=== PATIENT | male | born 1990 | race Caucasian/White ===

== ENCOUNTER 2018-10-04 07:39 | Emergency (ER) | payer MEDICAID, OTHER ==
[2018-10-04 08:26] LABS: ABS Basophils 0 10^3/ul (0-0.2); ABS Eosinophils 0 10^3/ul (0-0.6); ABS Lymphocytes 0.4 10^3/ul (1.0-4.8); ABS Monocytes 0.5 10^3/ul (0-0.8); ABS Neutrophils 2.7 10^3/ul (1.5-7.7); ABS Nucleated RBC 0 10^3/ul; Eosinophil % 0.8 %; Hematocrit 45 % (42-52); Hemoglobin 15.4 g/dl (14.0-18.0); Lymphocyte % 11.8 %; Mean Corpuscular HGB Conc 34 g/dl (31-36); Mean Corpuscular Hemoglobin 31 pg (27-31); Mean Corpuscular Volume 90 fL (80-94); Mean Platelet Volume 7.7 fL (7.4-10.4); Nucleated Red Blood Cells % 0.1; Platelet Count 220 10^3/ul (150-450); Red Blood Count 5.02 10^6/ul (4.00-5.40); Red Cell Distribution Width 13 % (10.5-15); White Blood Count 3.7 10^3/ul (3.5-10.8)
[2018-10-04 08:32] LABS: INR 1.15 (0.77-1.02)
--- NOTE | 2018-10-04 08:37 | ED ---
HPI Chest Pain - HPI Summary HPI Summary: Patient is a 27-year-old male presenting to the ED with a three-day worsening history of sweats, chills and diffuse chest pain. He notes the chest pain has been present consistently 2 years. Chest pain is not worse or better with positioning and not a better with medications. Nothing makes symptoms better or worse. 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 Today's chief complaint is patient states he has been unable to "get warm." He denies any body aches. Denies any subjective fevers. He states symptoms worsened yesterday after going out into the cold and having worsening chest pain with an episode of SOB. Currently asymptomatic on arrival. Patient denies smoking history, however smokes marijuana. Family history includes father PA at 21 and mother with triple bypass. Patient takes NyQuil at bed time to sleep but denies other medications. - History of Current Complaint Chief Complaint: EDGeneral Time Seen by Provider: 10/04/18 07:47 Hx Obtained From: Patient Onset/Duration: Started Hours Ago Timing: Constant Initial Severity: Moderate Current Severity: Mild Pain Intensity: 8 Pain Scale Used: 0-10 Numeric Chest Pain Location: Diffuse Chest Pain Radiates: No Character: Dull/Aching Aggravating Factor(s): Nothing Alleviating Factor(s): Nothing Associated Signs and Symptoms: Positive: Chest Pain, Anxiety, Recent Stress, Nonproductive Cough - Allergy/Home Medications Allergies/Adverse Reactions: Allergies Allergy/AdvReac Type Severity Reaction Status Date / Time Penicillins Allergy Anaphylatic Verified 10/04/18 07:45 Shock PMH/Surg Hx/FS Hx/Imm Hx Previously Healthy: Yes - Immunization History Hx Pertussis Vaccination: No Immunizations Up to Date: Yes Infectious Disease History: No Infectious Disease History: Denies: Traveled Outside the [place] in Last 30 Days - Social History Occupation: Employed Full-time Lives: With Family Alcohol Use: Rare Hx Substance Use: Yes Substance Use Type: Reports: Marijuana Hx Tobacco Use: Yes Smoking Status (MU): Former Smoker Review of Systems Positive: Chills, Fatigue, Skin Diaphoresis Negative: Photophobia, Blurred Vision Negative: Sore Throat, Ear Ache, Nasal Discharge Positive: Chest Pain. Negative: Palpitations Negative: Shortness Of Breath, Cough Genitourinary: Negative Positive: no symptoms reported, see HPI Negative: Arthralgia, Myalgia Neurological: Negative All Other Systems Reviewed And Are Negative: Yes Physical Exam Triage Information Reviewed: Yes Vital Signs On Initial Exam: Initial Vitals Temp Pulse Resp BP Pulse Ox 99.1 F 96 16 131/78 98 10/04/18 07:41 10/04/18 07:41 10/04/18 07:41 10/04/18 07:41 10/04/18 07:41 Vital Signs Reviewed: Yes Appearance: Positive: Well-Appearing, Well-Nourished Skin: Positive: Warm, Skin Color Reflects Adequate Perfusion Head/Face: Positive: Normal Head/Face Inspection Eyes: Positive: EOMI, MARIA M, Conjunctiva Clear Neck: Positive: Supple, No Lymphadenopathy Respiratory/Lung Sounds: Positive: Clear to Auscultation, Breath Sounds Present Cardiovascular: Positive: RRR, Pulses are Symmetrical in both Upper and Lower Extremities. Negative: Leg Edema Left, Leg Edema Right Musculoskeletal: Positive: Normal, Strength/ROM Intact Neurological: Positive: Sensory/Motor Intact, Alert, Oriented to Person Place, Time Psychiatric: Positive: Normal, Affect/Mood Appropriate AVPU Assessment: Alert Diagnostics - Vital Signs Vital Signs Temp Pulse Resp BP Pulse Ox 10/04/18 08:00 107 16 97 10/04/18 07:57 93 13 143/81 93 10/04/18 07:56 99 24 96 10/04/18 07:41 99.1 F 96 16 131/78 98 - Laboratory Lab Results: Lab Results 10/04/18 Range/Units 07:25 WBC 3.7 (3.5-10.8) 10^3/ul RBC 5.02 (4.00-5.40) 10^6/ul Hgb 15.4 (14.0-18.0) g/dl Hct 45 (42-52) % MCV 90 (80-94) fL MCH 31 (27-31) pg MCHC 34 (31-36) g/dl RDW 13 (10.5-15) % Plt Count 220 (150-450) 10^3/ul MPV 7.7 (7.4-10.4) fL Neut % (Auto) 72.2 % Lymph % (Auto) 11.8 % [place] % (Auto) 14.6 % Eos % (Auto) 0.8 % Baso % (Auto) 0.6 % Absolute Neuts (auto) 2.7 (1.5-7.7) 10^3/ul Absolute Lymphs (auto) 0.4 L (1.0-4.8) 10^3/ul Absolute Monos (auto) 0.5 (0-0.8) 10^3/ul Absolute Eos (auto) 0 (0-0.6) 10^3/ul Absolute Basos (auto) 0 (0-0.2) 10^3/ul Absolute Nucleated RBC 0 10^3/ul Nucleated RBC % 0.1 Result Diagrams: 10/04/18 07:25 10/04/18 07:25 Lab Statement: Any lab studies that have been ordered have been reviewed, and results considered in the medical decision making process. Chest Pain Course/Dx - Course Course Of Treatment: During the course of treatment, the patient is evaluated for diffuse chest pain 2 years and a chief complaint today of not being able to "get warm." He has never seen a clay worker and does not have a PCP. He is asymptomatic currently. Denies any SOB at this time. Symptoms are not worse or better with positioning or medications. Vital signs are stable and patient appears well. Lungs CTA, RRR. There is no weakness in the upper or lower extremities bilaterally. There is no chest pain on palpation. No pain to palpation of the abdomen. Patient is A and O 3, and nontoxic in appearing. Labs obtained which are unremarkable. Chest x-ray shows no acute cardiopulmonary disease. EKG shows normal sinus rhythm. Patient will be discharged home with a cardiac follow-up as well as information given for care connections to establish a PCP. - Chest Pain Differential Diagnosis/HQI/PQRI: Acute PA, Angina, Chest Wall, Other: - atypical chest pain - Diagnoses Provider Diagnoses: Atypical chest pain Discharge - Sign-Out/Discharge Documenting (check all that apply): Patient Departure - Discharge Plan Condition: Stable Disposition: HOME Referrals: [facility] [Outside] Pritesh Paiz MD [Medical Doctor] - No Primary Care Phys,NOPCP [Primary Care Provider] - Additional Instructions: Please follow up with PCP (Call [facility] to make an appt and secure a PCP) Call [facility] and make an appt I have given you referrals for each Please rest drink plenty of fluids Tylenol and Ibuprofen as needed for pain or fevers Return to the ED if you develop any worsening/changing symptoms - Billing Disposition and Condition Condition: STABLE Disposition: Home
[2018-10-04 08:51] LABS: BUN/Creatinine Ratio 9.5 (8-20); Calcium 9.5 mg/dL (8.6-10.3); Globulin 3.9 g/dL (2-4); Magnesium 1.8 mg/dL (1.9-2.7); Potassium 4.3 mmol/L (3.5-5.0); Total Bilirubin 0.6 mg/dL (0.2-1.0); Total Protein 7.9 g/dL (6.4-8.9)
[2018-10-04 09:22] VITALS: BP 124/76
== END 2018-10-04 09:20 | disposition home or self-care (01) ==
LOC: ED 07:39
DX: R07.89 Other chest pain (principal); F41.9 Anxiety disorder, unspecified; R05 Cough; Z87.891 Personal history of nicotine dependence; Z88.0 Allergy status to penicillin
CPT/HCPCS: 36415; 71046; 80053; 82550; 82553; 83605; 83735; 83880; 84484; 85025; 85610; 93005; 99282

== ENCOUNTER → 2018-10-05 | Emergency (ER) | payer MEDICAID ==
[~2018-10-05] MED LIST: Acetaminophen TAB* 325 MG PO ONE; Benzonatate CAP* 100 MG PO ONE; Ibuprofen TAB* 800 MG PO ONE; Lidocaine 2% VISCOUS* 15 ML UDC PO ONE
[2018-10-05 16:12] LABS: Influenza A Molecular POSITIVE (Negative)
--- NOTE | 2018-10-05 16:32 | ED ---
Influenza-Like Illness - HPI Summary HPI Summary: 27 year male presents with cough for the past couple days. He states he has no chest pain at this time. He did receive a full workup yesterday and had a negative chest x-ray and normal labs. He states that since then his cough has been worsening and he developed a fever. He states he admits to all over muscle aches. He admits to some sinus congestion. He has a sore throat from coughing. No bowel pain. No nausea vomiting or diarrhea. No one else is sick. Has no medical conditions. - History of Current Complaint Chief Complaint: EDUpperRespComplaint Time Seen by Provider: 10/05/18 15:29 - Allergy/Home Medications Allergies/Adverse Reactions: Allergies Allergy/AdvReac Type Severity Reaction Status Date / Time Penicillins Allergy Anaphylatic Verified 10/05/18 15:01 Shock PMH/Surg Hx/FS Hx/Imm Hx Endocrine/Hematology History: Denies: Hx Anticoagulant Therapy Respiratory History: Denies: Hx Asthma Infectious Disease History: No Infectious Disease History: Denies: Traveled Outside the [place] in Last 30 Days - Family History Known Family History: Negative: Respiratory Disease - Social History Alcohol Use: Rare Hx Substance Use: Yes Substance Use Type: Reports: Marijuana Hx Tobacco Use: Yes Smoking Status (MU): Former Smoker Review of Systems Positive: Fever Negative: Chest Pain Positive: Shortness Of Breath, Cough Negative: Abdominal Pain All Other Systems Reviewed And Are Negative: Yes Physical Exam Triage Information Reviewed: Yes Vital Signs On Initial Exam: Initial Vitals Temp Pulse Resp BP Pulse Ox 98.0 F 94 19 168/89 97 10/05/18 14:59 10/05/18 14:59 10/05/18 14:59 10/05/18 14:59 10/05/18 14:59 Vital Signs Reviewed: Yes Appearance: Positive: Ill-Appearing Skin: Positive: Warm, Dry Head/Face: Positive: Normal Head/Face Inspection Eyes: Positive: Normal, EOMI, MARIA M, Conjunctiva Clear ENT: Positive: Normal ENT inspection, Pharynx normal, TMs normal Respiratory/Lung Sounds: Positive: Clear to Auscultation, Breath Sounds Present Cardiovascular: Positive: Normal, RRR Abdomen Description: Positive: Nontender, Soft Bowel Sounds: Positive: Present Musculoskeletal: Positive: Normal Neurological: Positive: Normal Psychiatric: Positive: Normal Diagnostics - Vital Signs Vital Signs Temp Pulse Resp BP Pulse Ox 10/05/18 15:50 102.6 F 10/05/18 14:59 98.0 F 94 19 168/89 97 - Laboratory Lab Results: Lab Results 10/05/18 Range/Units 16:07 Influenza A (Rapid) Positive A (Negative) Lab Statement: Any lab studies that have been ordered have been reviewed, and results considered in the medical decision making process. Flu Symptom Course/Dx - Course Course Of Treatment: 27 year male presents with cough for the past couple days. He states he has no chest pain at this time. He did receive a full workup yesterday and had a negative chest x-ray and normal labs. He states that since then his cough has been worsening and he developed a fever. He states he admits to all over muscle aches. He admits to some sinus congestion. He has a sore throat from coughing. No bowel pain. No nausea vomiting or diarrhea. No one else is sick. Has no medical conditions. On exam appears ill. Lungs clear to auscultation. Pharynx normal. Flu a is positive. Discussed Tamiflu and patient declined. Told to take Tylenol ibuprofen for fever. gave tessalon for the cough. Patient understands agrees with plan. - Diagnoses Differential Diagnosis/HQI/PQRI: Positive: Bronchitis, Influenza, Pneumonia Provider Diagnoses: Influenza Discharge - Sign-Out/Discharge Documenting (check all that apply): Patient Departure - Discharge Plan Condition: Good Disposition: HOME Prescriptions: Benzonatate CAP* [Tessalon 100 MG CAP*] 100 mg PO TID PRN #21 cap PRN Reason: Cough Patient Education Materials: Influenza (ED) Referrals: [facility] [Outside] Additional Instructions: Take Tylenol and ibuprofen for muscle aches and fever every 6 hours take tessalon three times a day for cough Saline rinse can be used multiple times a day for nasal congestion Try to drink fluids establish care with primary Return to ED if develop any new or worsening symptoms - Billing Disposition and Condition Condition: GOOD Disposition: Home
[2018-10-05 16:44] VITALS: BP 115/59
== END | disposition home or self-care (01) ==
LOC: ED 14:57
DX: J11.1 Influenza due to unidentified influenza virus with other respiratory manifestations (principal); R06.02 Shortness of breath; R50.9 Fever, unspecified; R05 Cough; Z88.0 Allergy status to penicillin; Z87.891 Personal history of nicotine dependence
CPT/HCPCS: 99282; A9270-GY